=== PATIENT | female | born 1945 | race Caucasian/White ===

== ENCOUNTER → 2016-09-12 | Outpatient (CLI) | payer BC ==
[2016-09-12 10:40] LABS: ALT 42 U/L (9-52); AST 24 U/L (14-36); Alkaline Phosphatase 120 U/L (38-126); Anion Gap 10 mmol/L; Blood Urea Nitrogen 16 mg/dL (7-17); Calcium 9.2 mg/dL (8.4-10.2); Carbon Dioxide 27 mmol/L (22-30); Chloride 105 mmol/L (98-107); Cholesterol 173 mg/dL (<200); Glucose 135 mg/dL (74-99); HDL Cholesterol 71 mg/dL (40-60); Non-African American GFR(MDRD) >60 (>60 ml/min/1.73 sqM); Potassium 5.2 mmol/L (3.5-5.1); Sodium 142 mmol/L (137-145); Total Bilirubin 0.6 mg/dL (0.2-1.3); Total Protein 6.9 g/dL (6.3-8.2); Triglycerides 202 mg/dL (<150)
== END | disposition home or self-care (01) ==
LOC: LABWHC1 09:32
PROVIDERS: ATTEND Internal Medicine Endocrinology, Diabetes & Metabolism
DX: E11.65 Type 2 diabetes mellitus with hyperglycemia (principal)
CPT/HCPCS: 36415; 80053; 80061; 82043

== ENCOUNTER → 2018-08-16 | Outpatient (CLI) | payer MEDICARE ==
--- NOTE | 2018-08-16 17:14 | BD ---
EXAMINATION TYPE: Axial Bone Density DATE OF EXAM: 08/16/2018 COMPARISON: NONE CLINICAL HISTORY: 73-year-old female postmenopausal screening Height: 4 FT 11 1/2 IN Weight: 170 FRAX RISK QUESTIONS: Family History (Parent hip fracture): YES RISK FACTORS HISTORY OF: Active: YESDiet low in dairy products/other sources of calcium: Postmenopausal woman: 45-47 Lost more than 2 inches in height since high school: YES MEDICATIONS: Additional Medications: NOVALOG,LEVIMERE, METFORMIN, PEDIRON, ACID REFLUX MEDS, Additional History: EXAM MEASUREMENTS: Bone mineral densitometry was performed using the [employer]. Bone mineral density as measured about the Lumbar spine is: ----- L1-L4(G/cm2): 1.000 T Score Values are as follows: ----- L2: -2.5 ----- L3: -1.9 ----- L4: -0.2 ----- L1-L4: -1.[address]'S OFFICE Bone mineral density about the R hip (g/cm2): 0.711 Bone mineral density about the L hip (g/cm2): 0.762 T Score values are as follows: -----R Neck: -2.4 -----L Neck: -2.0 -----R Total: -1.2 -----L Total: -0.[address]'S OFFICE IMPRESSION: Osteopenia (T Score between -2.5 and -1). However, note that measurements border on osteoporosis. There is slightly increased risk of fracture and the patient may be considered for treatment. Re-Screen 2-5 years. NOTE: T-SCORE=SD OF THE YOUNG ADULT MEAN.
== END | disposition home or self-care (01) ==
LOC: RADBDWWP 12:03
PROVIDERS: ATTEND Family Medicine
DX: M85.88 Other specified disorders of bone density and structure, other site (principal); Z78.0 Asymptomatic menopausal state
CPT/HCPCS: 77080

== ENCOUNTER → 2018-12-02 | Outpatient (CLI) | payer MEDICARE ==
--- NOTE | 2018-12-03 14:10 | MM ---
Reason for exam: screening (asymptomatic). Last mammogram was performed 1 year and 1 month ago. History: Patient is postmenopausal and is nulliparous. Family history of premenopausal breast cancer in 2 paternal aunts at age 40. Benign stereotactic core biopsy of the right breast, October 03, 2002. Core biopsy of the right breast. Physical Findings: A clinical breast exam by your physician is recommended on an annual basis and results should be correlated with mammographic findings. MG 3D Screening Mammo W/Cad Bilateral CC and MLO view(s) were taken. Prior study comparison: November 03, 2017, bilateral MG screening mammo w CAD. August 22, 2015, bilateral MG screening mammo w CAD. The breast tissue is heterogeneously dense. This may lower the sensitivity of mammography. Finding: There are typically benign vascular, dystrophic, round, linear calcifications in both breasts. Previous mammotome biopsy in the right breast. There is no discrete abnormality. ASSESSMENT: Benign, BI-RAD 2 RECOMMENDATION: Routine screening mammogram of both breasts in 1 year.
== END | disposition home or self-care (01) ==
LOC: RADMAMWWP 07:14
PROVIDERS: ATTEND Family Medicine
DX: Z12.31 Encounter for screening mammogram for malignant neoplasm of breast (principal)
CPT/HCPCS: 77063; 77067

== ENCOUNTER → 2018-12-13 | Outpatient (CLI) | payer MEDICARE ==
--- NOTE | 2018-12-13 12:22 | US ---
EXAMINATION TYPE: US extremity nonvasc mass LT DATE OF EXAM: 12/13/2018 COMPARISON: NONE CLINICAL HISTORY: I80.0 Phlebitis and thrombophlebitis of other site. Patient has pain at left forearm that reoccurs approximately every 4 months that runs from wrist to e lbow. No superficial thrombophlebitis at patients area of pain, no masses or fluid collections seen at tyesha ents area of pain IMPRESSION: Visualized venous structures patent. No mass or fluid collection noted.
== END | disposition home or self-care (01) ==
LOC: RADUSWWP 11:52
PROVIDERS: ATTEND Family Medicine
DX: R22.2 Localized swelling, mass and lump, trunk (principal); Z86.72 Personal history of thrombophlebitis

== ENCOUNTER → 2020-01-30 | Outpatient (CLI) | payer MEDICARE ==
--- NOTE | 2020-02-01 13:27 | MM ---
Reason for exam: screening (asymptomatic). Last mammogram was performed 1 year and 2 months ago. History: Patient is postmenopausal and is nulliparous. Family history of premenopausal breast cancer in 2 paternal aunts at age 40. Benign stereotactic core biopsy of the right breast, October 03, 2002. Core biopsy of the right breast. Physical Findings: A clinical breast exam by your physician is recommended on an annual basis and results should be correlated with mammographic findings. MG 3D Screening Mammo W/Cad Bilateral CC and MLO view(s) were taken. Prior study comparison: December 02, 2018, bilateral MG 3d screening mammo w/cad. November 03, 2017, bilateral MG screening mammo w CAD. The breast tissue is heterogeneously dense. This may lower the sensitivity of mammography. Finding: There are extensive, course, fine, round, linear calcifications in both breasts. Previous mammotome biopsy in the right breast. No significant changes in finding since December 02, 2018 and November 03, 2017. ASSESSMENT: Benign, BI-RAD 2 RECOMMENDATION: Routine screening mammogram of both breasts in 1 year.
== END | disposition home or self-care (01) ==
LOC: RADMAMWWP 07:21
PROVIDERS: ATTEND Family Medicine
DX: Z12.31 Encounter for screening mammogram for malignant neoplasm of breast (principal)
CPT/HCPCS: 77063; 77067

== ENCOUNTER → 2021-03-07 | Outpatient (CLI) | payer MEDICARE ==
--- NOTE | 2021-03-11 09:55 | MM ---
Reason for exam: screening (asymptomatic). Last mammogram was performed 1 year and 1 month ago. History: Patient is postmenopausal and is nulliparous. Family history of premenopausal breast cancer in 2 paternal aunts at age 40. Benign stereotactic core biopsy of the right breast, October 03, 2002. Core biopsy of the right breast. Physical Findings: A clinical breast exam by your physician is recommended on an annual basis and results should be correlated with mammographic findings. MG 3D Screening Mammo W/Cad Bilateral CC and MLO view(s) were taken. Prior study comparison: January 30, 2020, bilateral MG 3d screening mammo w/cad. Finding: There are extensive linear, coarse, round, diffuse/scattered calcifications. Previous mammotome biopsy in the right breast. No significant changes in finding since January 30, 2020. ASSESSMENT: Benign, BI-RAD 2 RECOMMENDATION: Routine screening mammogram of both breasts in 1 year.
== END | disposition home or self-care (01) ==
LOC: RADMAMWWP 07:48
PROVIDERS: ATTEND Family Medicine
DX: Z12.31 Encounter for screening mammogram for malignant neoplasm of breast (principal); Z78.0 Asymptomatic menopausal state; Z80.3 Family history of malignant neoplasm of breast
CPT/HCPCS: 77063; 77067

== ENCOUNTER → 2021-09-12 | Outpatient (CLI) | payer MEDICARE ==
--- NOTE | 2021-09-12 08:32 | US ---
EXAMINATION TYPE: US abdomen complete DATE OF EXAM: 09/12/2021 COMPARISON: 08/13/2015 CLINICAL HISTORY: 76-year-old female R10.11 abdominal pain. Pain x 6 weeks ago TECHNIQUE: Multiple sonographic images of the abdomen are obtained. FINDINGS: EXAM MEASUREMENTS: Liver Length: 16.6 cm Gallbladder Wall: 0.2 cm CBD: 0.3 cm Spleen: 9.8 cm Right Kidney: 10.9 x 4.8 x 5.7 cm Left Kidney: 10.6 x 4.1 x 5.6 cm Pancreas: Tail obscured by overlying bowel gas and limited visualization of portions of the pancreat ic body. Liver: Heterogenous Gallbladder: Echogenic focus, nonshadowing - 0.5 x 0.4 cm along the posterior wall. No hydropic polo ge, wall thickening, or surrounding fluid. Evidence for sonographic Stephenson's sign: neg CBD: wnl Spleen: wnl Right Kidney: Cortical thinning. Renal cortex appears lobular. No hydronephrosis. Left Kidney: Cortical thinning. Renal cortex appears lobular. No hydronephrosis. Upper IVC: wnl Abd Aorta: Mid obscured by overlying bowel gas IMPRESSION: 1. Changes of bilateral chronic medical renal disease. 2. Heterogeneous liver parenchyma could represent fatty infiltration or nonspecific hepatocellular di sease. Correlate with LFTs in patient risk factors. And 3. A 5 mm echogenic focus along the posterior gallbladder wall previously measured 4 mm in 2016. Susp ect a small gallbladder wall polyp. Reassess in 6 months with gallbladder ultrasound. 4. No shadowing gallstones or biliary ductal dilatation.
== END | disposition home or self-care (01) ==
LOC: RADUSWWP 07:33
PROVIDERS: ATTEND Family Medicine
DX: R93.2 Abnormal findings on diagnostic imaging of liver and biliary tract (principal); N18.9 Chronic kidney disease, unspecified
CPT/HCPCS: 76700

== ENCOUNTER → 2022-03-20 | Outpatient (CLI) | payer MEDICARE ==
--- NOTE | 2022-03-20 07:48 | MM ---
Reason for Exam: Screening (asymptomatic). Last screening mammogram was performed 12 month(s) ago. Patient History: Menarche at age 15. Patient has no children. Postmenopausal. Core Biopsy on the Right side. 10/03/2002, Benign Stereotactic Core Biopsy on the right side. Paternal aunt had breast cancer, age 40. Paternal aunt had breast cancer, age 40. Risk Values: Sandrita 5 year model risk: 2.7%. NCI Lifetime model risk: 5.8%. Prior Study Comparison: 12/02/2018 Bilateral Screening Mammogram, [facility]. 01/30/2020 Bilateral Screening Mammogram, [facility]. 03/07/2021 Bilateral Screening Mammogram, [facility]. Tissue Density: There are scattered fibroglandular densities. Findings: Analyzed By CAD. There is no suspicious group of microcalcifications or new suspicious mass in either breast. Bilateral benign-appearing calcifications redemonstrated. Biopsy clip within the right breast. No significant change from prior exams. Overall Assessment: Benign, BI-RAD 2 Management: Screening Mammogram of both breasts in 1 year. A clinical breast exam by your physician is recommended on an annual basis and results should be correlated with mammographic findings. Electronically signed and approved by: Eamon Galeana D.O.
== END | disposition home or self-care (01) ==
LOC: RADMAMWWP 06:49
PROVIDERS: ATTEND Family Medicine
DX: Z12.31 Encounter for screening mammogram for malignant neoplasm of breast (principal); Z78.0 Asymptomatic menopausal state; Z80.3 Family history of malignant neoplasm of breast
CPT/HCPCS: 77063; 77067

== ENCOUNTER → 2023-01-12 | Outpatient (CLI) | payer MEDICARE ==
--- NOTE | 2023-01-13 08:25 | CT ---
EXAMINATION TYPE: CT cervical spine wo con DATE OF EXAM: 01/12/2023 COMPARISON: None HISTORY: Neck and left shoulder pain. CT DLP: 356.[address] of the cervical spine was performed with bone and soft tissue window settings submitted . Coronal and sagittal reconstruction is obtained. C2-3: Within normal limits C3-4: Severe degenerative disc space narrowing with ventral and dorsal spurring. Endplate sclerosis. Posterior disc bulge with mild effacement of the ventral thecal sac. No evidence for disc herniation or central stenosis. Degenerative change of the cervical apophyseal joints with left-sided foraminal encroachment. C4-5: There is retrolisthesis of C4 on C5 of 3.1 mm. Severe degenerative disc space narrowing with en dplate sclerosis as well as ventral and dorsal spondylosis. There is posterior disc bulge with mild c entral stenosis. Bilateral neural foraminal encroachment identified. C5-6: Severe disc desiccation with ventral and dorsal spondylosis. Posterior hard disc noted resultin g in moderate central stenosis and ventral cord contact. Left greater than right neural foraminal enc roachment. C6-7: Severe disc desiccation with mild ventral and dorsal spondylosis. Mild posterior disc bulge. Ef facement of the ventral thecal sac without overt stenosis seen. Mild to moderate bilateral foraminal encroachment left greater than right. C7-T1: 2 mm anterolisthesis of C7 on T1. Mild degenerative disc space narrowing. Mild posterior disc bulge. No herniation or central stenosis. The foramina appear to be patent. No evidence of fracture. No bony destructive process. IMPRESSION: 1. Multilevel degenerative disc disease. Alignment as noted above. 2. Moderate central stenosis at C5-6 with mild central stenosis at C4-5. Varying degrees of foraminal encroachment as outlined above.
== END | disposition home or self-care (01) ==
LOC: RADCTMAIN 16:06
PROVIDERS: ATTEND Family Medicine
DX: M50.11 Cervical disc disorder with radiculopathy, high cervical region (principal); M99.71 Connective tissue and disc stenosis of intervertebral foramina of cervical region
CPT/HCPCS: 72125

== ENCOUNTER → 2023-04-09 | Outpatient (CLI) | payer MEDICARE ==
--- NOTE | 2023-04-10 22:52 | MM ---
Reason for Exam: Screening (asymptomatic). Last mammogram was performed 1 year(s) and 1 month(s) ago. Patient History: Menarche at age 15. Patient has no children. Postmenopausal. Core Biopsy on the Right side. 10/03/2002, Benign Stereotactic Core Biopsy on the right side. Paternal aunt had breast cancer, age 40. Paternal aunt had breast cancer, age 40. Risk Values: Sandrita 5 year model risk: 2.7%. NCI Lifetime model risk: 5.4%. Prior Study Comparison: 01/30/2020 Bilateral Screening Mammogram, [facility]. 03/07/2021 Bilateral Screening Mammogram, [facility]. 03/20/2022 Bilateral MG 3D screening mammo w/cad, [facility]. Tissue Density: There are scattered fibroglandular densities. Findings: Analyzed By CAD. Extensive benign secretory, vascular, and oil cyst calcifications are redemonstrated bilaterally. There is no suspicious group of microcalcifications or new suspicious mass in either breast. Overall Assessment: Benign, BI-RAD 2 Management: Screening Mammogram of both breasts in 1 year. . Patient should continue monthly self-breast exams. A clinical breast exam by your physician is recommended on an annual basis. This exam should not preclude additional follow-up of suspicious palpable abnormalities. Note on Sandrita scores and lifetime risk: 1. A Sandrita score greater than 3% is considered moderate risk. If this is the case, consider specialist referral to assess eligibility for a risk reducing agent. 2. If overall lifetime risk for the development of breast cancer is 20% or higher, the patient may qualify for future screening with alternating mammogram and breast MRI. Electronically signed and approved by: Braxton Lubin M.D. Radiologist
== END | disposition home or self-care (01) ==
LOC: RADMAMWWP 11:23
PROVIDERS: ATTEND Family Medicine
DX: Z12.31 Encounter for screening mammogram for malignant neoplasm of breast (principal); Z78.0 Asymptomatic menopausal state; Z80.3 Family history of malignant neoplasm of breast
CPT/HCPCS: 77063; 77067

== ENCOUNTER → 2023-05-28 | Outpatient (CLI) | payer MEDICARE ==
--- NOTE | 2023-05-28 14:16 | MR ---
EXAMINATION TYPE: MR cervical spine wo con DATE OF EXAM: 05/28/2023 1:35 PM CLINICAL INDICATION:Female, 78 years old with history of M54.2, M47.812; PHH, Neck pain and stiffness COMPARISON: Radiograph 05/13/2023. CT 01/12/2023.. TECHNIQUE: Multi planar, multi sequence imaging was performed utilizing: T1-weighted, T2-weighted, an d turbo inversion recovery imaging of the cervical spine. IV Contrast: cc (none if empty) FINDINGS: Alignment: The cervical vertebral bodies have preserved heights. There may be subtle grade 1 anteroli sthesis of C7 on T1. Bones: Scattered Modic endplate changes with osteophytes and disc space narrowing. Multilevel degener ative disc disease is noted and most pronounced at the C3-C7 vertebral levels. Cord: The spinal cord is unremarkable with regards to their signal intensity and morphology. Discs: Multilevel disc desiccation is present. C2-C3: No significant disc pathology. The spinal canal is patent. No neural foraminal stenosis. C3-C4: A disc osteophyte complex is present with mild to moderate spinal canal stenosis. Bilateral f acet and uncovertebral joint arthropathy are present with moderate to severe bilateral neural foramin al stenosis. C4-C5: A disc osteophyte complex is present with moderate spinal canal stenosis. Bilateral facet and uncovertebral joint arthropathy are present with moderate to severe bilateral neural foraminal steno sis. C5-C6: Central disc protrusion/disc osteophyte complex which results in severe spinal canal stenosis . Cord signal is maintained. Bilateral facet and uncovertebral joint arthropathy are present with mod erate to severe bilateral neural foraminal stenosis. C6-C7: No significant disc pathology. The spinal canal is patent. Bilateral facet and uncovertebral joint arthropathy are present with moderate to severe bilateral neural foraminal stenosis. C7-T1: No significant disc pathology. The spinal canal is patent. Bilateral facet and uncovertebral joint arthropathy are present with mild bilateral neural foraminal stenosis. Other: None. IMPRESSION: 1. C5-C6 severe spinal canal stenosis secondary to disc osteophyte complex is this protrusion centra lly. Cord signal is maintained. There is moderate to severe neural foraminal stenosis at this level. 2. Moderate to severe degeneration changes of the cervical spine with multilevel neural foraminal st enosis as described above for cyst C3-C7.
== END | disposition home or self-care (01) ==
LOC: RADMRIMAIN 12:49
PROVIDERS: ATTEND Orthopaedic Surgery
DX: M47.812 Spondylosis without myelopathy or radiculopathy, cervical region (principal); M48.02 Spinal stenosis, cervical region; M99.71 Connective tissue and disc stenosis of intervertebral foramina of cervical region; M50.31 Other cervical disc degeneration, high cervical region; M25.78 Osteophyte, vertebrae
CPT/HCPCS: 72141

== ENCOUNTER → 2024-07-06 | Outpatient (CLI) | payer MEDICARE ==
--- NOTE | 2024-07-10 00:46 | MM ---
Reason for Exam: Screening (asymptomatic). Last mammogram was performed 1 year(s) and 3 month(s) ago. Patient History: Menarche at age 15. Patient has no children. Postmenopausal. Core Biopsy on the Right side. 10/03/2002, Benign Stereotactic Core Biopsy on the right side. Paternal aunt had breast cancer, age 40. Paternal aunt had breast cancer, age 40. Risk Values: Sandrita 5 year model risk: 2.6%. NCI Lifetime model risk: 4.7%. Prior Study Comparison: 03/07/2021 Bilateral Screening Mammogram, [facility]. 03/20/2022 Bilateral MG 3D screening mammo w/cad, [facility]. 04/09/2023 Bilateral MG 3D screening mammo w/cad, [facility]. Tissue Density: There are scattered areas of fibroglandular density. Findings: Analyzed By CAD. The pattern is symmetrical. Extensive punctate and linear calcifications are present diffusely. Suspicious cluster microcalcifications identified No suspicious groups of microcalcifications, spiculated or lobular masses, architectural distortion or other secondary signs of malignancy are mammographically apparent. Overall Assessment: Benign, BI-RAD 2 Management: Screening Mammogram of both breasts in 1 year. A negative mammogram report should not preclude additional follow up of suspicious palpable abnormalities. Patient should continue monthly self breast exam. A clinical breast exam by your physician is recommended on an annual basis and results should be correlated with mammographic findings. Note on Sandrita scores and lifetime risk: 1. A Sandrita score greater than 3% is considered moderate risk. If this is the case, consider specialist referral to assess eligibility for a risk reducing agent. 2. If overall lifetime risk for the development of breast cancer is 20% or higher, the patient may qualify for future screening with alternating mammogram and breast MRI. [facility], , 07/10/2024 12:43 AM. Electronically signed and approved by: Natan Arauz D.O. Radiologis
== END | disposition home or self-care (01) ==
LOC: RADMAMWWP 08:47
PROVIDERS: ATTEND Family Medicine
DX: Z12.31 Encounter for screening mammogram for malignant neoplasm of breast (principal); R92.323 Mammographic fibroglandular density, bilateral breasts; Z78.0 Asymptomatic menopausal state; Z80.3 Family history of malignant neoplasm of breast
CPT/HCPCS: 77063; 77067

== ENCOUNTER → 2024-11-15 | Outpatient (CLI) | payer MEDICARE ==
--- NOTE | 2024-11-15 11:11 | CT ---
EXAMINATION TYPE: CT chest abdomen wo con DATE OF EXAM: 11/15/2024 10:43 AM COMPARISON: 09/13/2015, 01/12/2023. CLINICAL INDICATION: Female, 79 years old with history of R14.0 BLOATING S22.41XA RIB FX; PHH, RT amanda e rib fx with bloating Technique: CT chest abdomen wo con; Multiple axial images were obtained. Two-dimensional coronal and sagittal reconstructions were obtained. Contrast used: mL of , (None if empty) Oral contrast used: with Oral Contrast CT DLP: 701 mGycm, Automated exposure control for dose reduction was used. Findings: CHEST: LUNGS/ PLEURA: No focal consolidation, pneumothorax or pleural effusion. AIRWAY: Patent and unremarkable. HEART: Size within normal limits. No significant coronary artery calcifications. MEDIASTINUM: No gross evidence of adenopathy. VASCULATURE: No aortic aneurysm. MUSCULOSKELETAL: Subacute right rib fractures involving right ribs 5 and 6 and 7 with callus formatio n SOFT TISSUES/LYMPH NODES: Unremarkable. LOWER NECK: No significant findings. ABDOMEN: ABDOMEN LIVER: Unremarkable GALLBLADDER AND BILE DUCTS: Layering increased densities within the lumen consistent with gallstones are present. PANCREAS: Unremarkable. SPLEEN: Unremarkable. ADRENAL GLANDS: Unremarkable. KIDNEYS AND URETERS: No evidence of hydronephrosis or obstructing renal calculus. The ureters are unr emarkable. STOMACH AND BOWEL: No evidence of bowel obstruction. Scattered colonic diverticula. Posterior gastric diverticulum near the left adrenal gland. Moderate to large amount stool in the colon. PERITONEUM/RETROPERITONEUM: No evidence of pneumoperitoneum or free fluid. VASCULATURE: No evidence of aortic aneurysm. MUSCULOSKELETAL: No acute osseous abnormalities. Moderate disc degeneration changes are present throu ghout the thoracolumbar spine. Grade 1 anterolisthesis of L4 and L5. No spondylolysis. Pseudarthrosis spinous processes in the lower lumbar spine. LYMPH NODES: No gross evidence for lymphadenopathy. SOFT TISSUE/ABDOMINAL WALL: Unremarkable IMPRESSION: 1. Subacute right rib fractures involving right ribs 5, 6 and 7 with callus formation. No new acute fractures visualized. No left-sided rib fractures definitively visualized. 2. No acute abdominal process. 3. Moderate to large amount of stool within the colon. 4. Cholelithiasis. 5. Colonic diverticulosis. 6. Grade 1 anterolisthesis of L4 and L5. No spondylolysis. 7. 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 Follow up recommendations for incidental pulmonary nodules are per [employer] or [employer]. [facility], , 11/15/2024 11:09 AM
== END | disposition home or self-care (01) ==
LOC: RADCTMAIN 09:47
PROVIDERS: ATTEND Family Medicine
DX: S22.41XA Multiple fractures of ribs, right side, initial encounter for closed fracture (principal); K80.20 Calculus of gallbladder without cholecystitis without obstruction; K57.30 Diverticulosis of large intestine without perforation or abscess without bleeding; M43.16 Spondylolisthesis, lumbar region; M96.0 Pseudarthrosis after fusion or arthrodesis; X58.XXXA Exposure to other specified factors, initial encounter
CPT/HCPCS: 71250; 74150